=== PATIENT | male | born 1975 | race Caucasian/White ===

== ENCOUNTER 2020-10-19 17:42 | Inpatient (IN) | payer OTHER ==
[~2020-10-19] VITALS: Ht 188 cm; Wt 104.3 kg
--- NOTE | 2020-10-19 18:24 | NUR ---
[facility] from [place] for altered mental status. pt was seen there yesterday for right ear pain and purulent drainage w/ headache x 3 weeks. Pt and family at bedside deny any recent head trauma. Pt reports 3 weeks ago his ear just "popped." found pt this morning altered/confused and she described him as "unresponsive" Head CT scan at transferring facility was concerning for chronic subdural hematoma or hygroma vs empyema. Also some concerns surround right sinus cavities. pt was tranferred here for higher level of care. pt attached to all monitors. dr mary swabbed ear for culture sample. call light attached to bed rail.
[2020-10-19] MEDS ORDERED: SODIUM CHLORIDE FLUSH 10ML SYR IVF ONE (18:30)
[2020-10-19] MEDS ORDERED: POTASSIUM CHLORIDE 40 MEQ in SODIUM CHLORIDE 0.9% 500 ML IV ONE (19:00)
[2020-10-19] MEDS ORDERED: POTASSIUM CHLORIDE 20 MEQ TAB.ER.PRT PO ONE (19:00)
--- NOTE | 2020-10-19 19:29 | NUR ---
TASK RN: LAB AT BEDSIDE FOR DRAW AT THIS TIME.
[2020-10-19] MEDS ORDERED: VANCOMYCIN PER PHARMACY MC ONE (19:30)
[2020-10-19] MEDS ORDERED: MORPHINE SULFATE 4 MG/ML, 1ML ONE ×3 (19:36→23:34)
[2020-10-19] MEDS: MORPHINE SULFATE 4 MG/ML, 1ML IVPush PRN ×2 (19:44→20:47)
--- NOTE | 2020-10-19 19:44 | NUR ---
task rn: pt to mri
--- NOTE | 2020-10-19 19:47 | NUR ---
pt to MRI
[2020-10-19] MEDS ORDERED: AMLO-211 PO (19:57)
[2020-10-19] MEDS ORDERED: DULO20CA45 PO (19:57)
[2020-10-19] MEDS ORDERED: buspirone PO (19:57)
[2020-10-19] MEDS ORDERED: quetiapine PO (19:57)
[2020-10-19] MEDS ORDERED: PIPERACILLIN/TAZO 4.5 GM in DEXTROSE 5% 100 ML IVPB ONE (20:00)
[2020-10-19] MEDS ORDERED: VANCOMYCIN 2,500 MG in SODIUM CHLORIDE 0.9% 500 ML IV ONE (20:30)
[2020-10-19] MEDS ORDERED: DIVA500T17 PO (20:55)
[2020-10-19] MEDS ORDERED: SILD100T PO (20:55)
[2020-10-19] MEDS ORDERED: CYAN-27 PO (20:55)
[2020-10-19] MEDS ORDERED: PREG200C PO (20:55)
--- NOTE | 2020-10-19 20:55 | NUR ---
task rn. pt medicated for pain per [facility], med rec updated per with med list. neuro assessment done. pt with family at bedside.
[2020-10-19] MEDS ORDERED: GADOTERATE 10 MMOL/20ML SYR ONE (21:34)
--- NOTE | 2020-10-19 22:19 | NUR ---
dr corbin with neurosurg at beside with dr lamas also
[2020-10-19] MEDS ORDERED: GUAIFENESIN/DM 200-20MG, 10ML UDC PO PRN (22:30)
[2020-10-19] MEDS ORDERED: ENALAPRILAT 1.25 MG/ML, 2ML IVPush PRN (22:30)
[2020-10-19] MEDS ORDERED: VANCOMYCIN PER PHARMACY MC PRN (22:30)
[2020-10-19] MEDS ORDERED: METHOCARBAMOL 500 MG TABLET PO PRN (22:30)
[2020-10-19] MEDS ORDERED: MELATONIN 5 MG TABLET PO PRN (22:30)
[2020-10-19] MEDS ORDERED: DOCUSATE 100 MG CAPSULE PO PRN (22:30)
[2020-10-19] MEDS ORDERED: ONDANSETRON 2MG/ML, 2ML IVPush PRN (22:30)
[2020-10-19 22:51] LABS: BASOPHILS % (AUTO) 1 % (0-1); EOSINOPHILS % (AUTO) 0 % (1-7); LYMPHOCYTES % (AUTO) 17 % (22-44); MEAN CORPUSCULAR HEMOGLOBIN 27.7 pg (27.5-34.5); MEAN CORPUSCULAR HGB CONC 33.4 g/dL (33.2-36.2); MEAN PLATELET VOLUME 9.6 fL (7.4-10.4); MONOCYTES % (AUTO) 13 % (2-9); NEUTROPHILS % (AUTO) 69 % (42-75); PLATELET COUNT 243 x10^3/uL (130-400); RED BLOOD COUNT 3.84 x10^6/uL (4.38-5.82); RED CELL DISTRIBUTION WIDTH 18.9 % (9.4-14.8)
[2020-10-19] MEDS ORDERED: LEVETIRACETAM 500 MG TABLET ONE (22:53)
[2020-10-19] MEDS ORDERED: NICOTINE 21 MG/24 HR PATCH.TD24 ONE (22:53)
[2020-10-19] MEDS ORDERED: DIVALPROEX 500 MG TAB.ER.24H ONE (22:53)
[2020-10-19 22:59] LABS: ANION GAP 7 mmol/L (5-15); CALCIUM 8.2 mg/dL (8.5-10.1); CHLORIDE 108 mmol/L (98-107); CREATININE 0.74 mg/dL (0.7-1.3)
[2020-10-19] MEDS: NICOTINE 21 MG/24 HR PATCH.TD24 TD SCH (23:03)
[2020-10-19] MEDS: DIVALPROEX 500 MG TAB.ER.24H PO SCH (23:04)
[2020-10-19] MEDS: LEVETIRACETAM 500 MG TABLET PO SCH (23:04)
[2020-10-19 23:11] LABS: INTERNATIONAL NORMALIZED RATIO 1.07 (0.93-1.1); PROTHROMBIN TIME 11.4 Seconds (9.6-11.5)
[2020-10-19] MEDS: morphine SULFATE 10 MG/ML, 1ML IVPush PRN (23:36)
--- NOTE | 2020-10-19 23:47 | NUR ---
pt with complaints of increased pain. medicated for pain per [facility].
--- NOTE | 2020-10-19 23:48 | NUR ---
report to aurelio [facility]inton
[2020-10-20] MEDS ORDERED: PHARMACOKINETIC MONITORING MC PRN (00:30)
[2020-10-20] MEDS: SODIUM CHLORIDE 0.9% 1,000 ML IV SCH ×3 (01:11→22:18)
[2020-10-20] MEDS: BUSPIRONE 10 MG TABLET PO SCH ×4 (01:11→20:16)
[2020-10-20] MEDS: DULOXETINE 20 MG CAPSULE.DR PO SCH ×4 (01:11→20:16)
[2020-10-20] MEDS: PREGABALIN 100 MG CAPSULE PO SCH ×4 (01:12→20:20)
[2020-10-20] MEDS: QUETIAPINE 200 MG TABLET PO SCH ×2 (01:12→20:15)
[2020-10-20] MEDS: CIPROFLOXACIN/HYDROCORTISONE EAR SUSP 0.2-1%, 10ML RIGHT EAR SCH ×3 (01:17→20:12)
[2020-10-20] MEDS ORDERED: PIPERACILLIN/TAZO 4.5 GM in DEXTROSE 5% 100 ML IV SCH (04:00)
[2020-10-20 04:32] LABS: BASOPHILS % (AUTO) 1 % (0-1); EOSINOPHILS % (AUTO) 1 % (1-7); LYMPHOCYTES % (AUTO) 27 % (22-44); MEAN CORPUSCULAR HEMOGLOBIN 27.7 pg (27.5-34.5); MEAN CORPUSCULAR HGB CONC 32.9 g/dL (33.2-36.2); MONOCYTES % (AUTO) 17 % (2-9); NEUTROPHILS % (AUTO) 54 % (42-75); PLATELET COUNT 213 x10^3/uL (130-400); RED BLOOD COUNT 3.76 x10^6/uL (4.38-5.82); RED CELL DISTRIBUTION WIDTH 19.1 % (9.4-14.8)
[2020-10-20 04:44] LABS: ANION GAP 5 mmol/L (5-15); CHLORIDE 108 mmol/L (98-107); CREATININE 0.71 mg/dL (0.7-1.3)
[2020-10-20] MEDS: morphine SULFATE 10 MG/ML, 1ML IVPush PRN ×4 (08:46→20:41)
[2020-10-20] MEDS: CYANOCOBALAMIN 1,000 MCG TABLET PO SCH (09:00)
[2020-10-20] MEDS: OXYcodone IR 5MG TABLET PO PRN ×2 (09:20→14:39)
[2020-10-20] MEDS: LEVETIRACETAM 500 MG TABLET PO SCH ×2 (09:53→20:16)
[2020-10-20] MEDS: AMLODIPINE 10 MG TAB PO SCH (09:54)
[2020-10-20] MEDS: CEFEPIME 2 GM in DEXTROSE 5% 100 ML IV SCH ×2 (09:54→17:45)
[2020-10-20] MEDS: VANCOMYCIN 2,000 MG in SODIUM CHLORIDE 0.9% 500 ML IV SCH ×2 (11:03→22:18)
[2020-10-20] MEDS: DIVALPROEX 500 MG TAB.ER.24H PO SCH (20:16)
[2020-10-20] MEDS: NICOTINE 21 MG/24 HR PATCH.TD24 TD SCH (22:19)
[2020-10-21] MEDS: CEFEPIME 2 GM in DEXTROSE 5% 100 ML IV SCH ×2 (01:36→09:23)
[2020-10-21] MEDS: morphine SULFATE 10 MG/ML, 1ML IVPush PRN ×2 (03:52→15:26)
[2020-10-21 04:11] LABS: BASOPHILS % (AUTO) 1 % (0-1); EOSINOPHILS % (AUTO) 1 % (1-7); LYMPHOCYTES % (AUTO) 27 % (22-44); MEAN CORPUSCULAR HEMOGLOBIN 27.7 pg (27.5-34.5); MEAN PLATELET VOLUME 8.8 fL (7.4-10.4); MONOCYTES % (AUTO) 15 % (2-9); NEUTROPHILS % (AUTO) 57 % (42-75); PLATELET COUNT 212 x10^3/uL (130-400); RED BLOOD COUNT 3.65 x10^6/uL (4.38-5.82); RED CELL DISTRIBUTION WIDTH 18.3 % (9.4-14.8)
[2020-10-21 04:21] LABS: ALBUMIN 2.2 g/dL (3.4-5.0); CALCIUM 8.2 mg/dL (8.5-10.1)
[2020-10-21 04:27] LABS: ALANINE AMINOTRANSFERASE 12 U/L (12-78); ALKALINE PHOSPHATASE 66 U/L (45-117); BILIRUBIN,TOTAL 0.3 mg/dL (0.2-1.0); CREATININE 0.59 mg/dL (0.7-1.3); TOTAL PROTEIN 6.4 g/dL (6.4-8.2)
[2020-10-21 04:34] LABS: ANION GAP 6 mmol/L (5-15); CHLORIDE 106 mmol/L (98-107)
[2020-10-21] MEDS: ACETAMINOPHEN 325 MG TABLET PO PRN ×4 (08:15→22:18)
[2020-10-21] MEDS: OXYcodone IR 5MG TABLET PO PRN ×5 (08:16→22:19)
[2020-10-21] MEDS: PREGABALIN 100 MG CAPSULE PO SCH ×3 (08:20→20:54)
[2020-10-21] MEDS: LEVETIRACETAM 500 MG TABLET PO SCH ×2 (08:20→20:53)
[2020-10-21] MEDS: BUSPIRONE 10 MG TABLET PO SCH ×3 (08:20→20:53)
[2020-10-21] MEDS: DULOXETINE 20 MG CAPSULE.DR PO SCH ×3 (08:20→20:53)
[2020-10-21] MEDS: AMLODIPINE 10 MG TAB PO SCH (08:21)
[2020-10-21] MEDS: CYANOCOBALAMIN 1,000 MCG TABLET PO SCH (08:21)
[2020-10-21] MEDS: CIPROFLOXACIN/HYDROCORTISONE EAR SUSP 0.2-1%, 10ML RIGHT EAR SCH ×2 (08:24→21:42)
[2020-10-21] MEDS ORDERED: CEFEPIME 2 GM in DEXTROSE 5% 50 ML IV SCH (09:26)
[2020-10-21] MEDS: VANCOMYCIN 2,000 MG in SODIUM CHLORIDE 0.9% 500 ML IV SCH ×2 (10:11→22:21)
[2020-10-21] MEDS: CEFEPIME 2 GM in DEXTROSE 5% 50 ML IV SCH (16:46)
[2020-10-21 19:52] VITALS: BP 128/66
[2020-10-21] MEDS: DIVALPROEX 500 MG TAB.ER.24H PO SCH (20:54)
[2020-10-21] MEDS: QUETIAPINE 200 MG TABLET PO SCH (20:55)
[2020-10-21] MEDS: NICOTINE 21 MG/24 HR PATCH.TD24 TD SCH (22:22)
[2020-10-22] MEDS: CEFEPIME 2 GM in DEXTROSE 5% 50 ML IV SCH ×3 (01:28→17:45)
[2020-10-22 03:29] VITALS: BP 113/72
[2020-10-22] MEDS: OXYcodone IR 5MG TABLET PO PRN ×3 (03:39→14:17)
[2020-10-22 06:18] LABS: BASOPHILS % (AUTO) 1 % (0-1); EOSINOPHILS % (AUTO) 2 % (1-7); LYMPHOCYTES % (AUTO) 38 % (22-44); MEAN CORPUSCULAR HEMOGLOBIN 27.7 pg (27.5-34.5); MEAN CORPUSCULAR HGB CONC 32.8 g/dL (33.2-36.2); MONOCYTES % (AUTO) 14 % (2-9); NEUTROPHILS % (AUTO) 45 % (42-75); PLATELET COUNT 260 x10^3/uL (130-400); RED BLOOD COUNT 3.63 x10^6/uL (4.38-5.82); RED CELL DISTRIBUTION WIDTH 18.5 % (9.4-14.8)
[2020-10-22 06:19] LABS: CALCIUM 8.3 mg/dL (8.5-10.1); CHLORIDE 108 mmol/L (98-107)
[2020-10-22 06:23] LABS: ANION GAP 5 mmol/L (5-15); CREATININE 0.62 mg/dL (0.7-1.3)
[2020-10-22 08:55] VITALS: BP 122/85
[2020-10-22] MEDS: CYANOCOBALAMIN 1,000 MCG TABLET PO SCH (09:27)
[2020-10-22] MEDS: AMLODIPINE 10 MG TAB PO SCH (09:28)
[2020-10-22] MEDS: PREGABALIN 100 MG CAPSULE PO SCH ×3 (09:28→21:11)
[2020-10-22] MEDS: LEVETIRACETAM 500 MG TABLET PO SCH ×2 (09:28→21:11)
[2020-10-22] MEDS: CIPROFLOXACIN/HYDROCORTISONE EAR SUSP 0.2-1%, 10ML RIGHT EAR SCH ×2 (09:28→21:05)
[2020-10-22] MEDS: BUSPIRONE 10 MG TABLET PO SCH ×3 (09:28→21:10)
[2020-10-22] MEDS: DULOXETINE 20 MG CAPSULE.DR PO SCH ×3 (09:28→21:00)
[2020-10-22] MEDS: VANCOMYCIN 2,000 MG in SODIUM CHLORIDE 0.9% 500 ML IV SCH ×2 (10:37→21:24)
[2020-10-22] MEDS: morphine SULFATE 10 MG/ML, 1ML IVPush PRN ×2 (10:37→21:23)
[2020-10-22] MEDS: ACETAMINOPHEN 325 MG TABLET PO PRN ×2 (12:34→17:52)
[2020-10-22 14:00] VITALS: BP 121/82
[2020-10-22] MEDS ORDERED: allegra PO (17:16)
[2020-10-22 18:20] VITALS: BP 119/82
[2020-10-22] MEDS ORDERED: QUET200T4 PO (19:17)
[2020-10-22] MEDS: NICOTINE 21 MG/24 HR PATCH.TD24 TD SCH (21:10)
[2020-10-22] MEDS: QUETIAPINE 200 MG TABLET PO SCH (21:11)
[2020-10-22] MEDS: DIVALPROEX 500 MG TAB.ER.24H PO SCH (21:11)
[2020-10-22] MEDS ORDERED: MORPHINE SULFATE 4 MG/ML, 1ML ONE (21:21)
[2020-10-23] MEDS: CEFEPIME 2 GM in DEXTROSE 5% 50 ML IV SCH ×3 (01:14→17:51)
[2020-10-23 01:21] VITALS: BP 98/63
[2020-10-23 05:21] LABS: BASOPHILS % (AUTO) 1 % (0-1); EOSINOPHILS % (AUTO) 2 % (1-7); LYMPHOCYTES % (AUTO) 25 % (22-44); MEAN CORPUSCULAR HEMOGLOBIN 27.7 pg (27.5-34.5); MEAN CORPUSCULAR HGB CONC 32.9 g/dL (33.2-36.2); MEAN PLATELET VOLUME 8.8 fL (7.4-10.4); MONOCYTES % (AUTO) 15 % (2-9); NEUTROPHILS % (AUTO) 57 % (42-75); PLATELET COUNT 286 x10^3/uL (130-400); RED BLOOD COUNT 3.62 x10^6/uL (4.38-5.82); RED CELL DISTRIBUTION WIDTH 18.6 % (9.4-14.8)
[2020-10-23 05:29] LABS: CHLORIDE 107 mmol/L (98-107)
[2020-10-23 05:30] LABS: HCT (SEDRATE) 30.5 % (39.2-51.8)
[2020-10-23 05:40] LABS: ALANINE AMINOTRANSFERASE 20 U/L (12-78); ALBUMIN 2.2 g/dL (3.4-5.0); ALKALINE PHOSPHATASE 67 U/L (45-117); ANION GAP 5 mmol/L (5-15); BILIRUBIN,TOTAL 0.3 mg/dL (0.2-1.0); CALCIUM 8.1 mg/dL (8.5-10.1); CREATININE 0.65 mg/dL (0.7-1.3); TOTAL PROTEIN 6.6 g/dL (6.4-8.2)
[2020-10-23 06:43] VITALS: BP 106/72
[2020-10-23] MEDS: DULOXETINE 20 MG CAPSULE.DR PO SCH ×3 (09:30→21:05)
[2020-10-23] MEDS: LEVETIRACETAM 500 MG TABLET PO SCH ×2 (09:30→21:05)
[2020-10-23] MEDS: PREGABALIN 100 MG CAPSULE PO SCH ×3 (09:30→21:04)
[2020-10-23] MEDS: CYANOCOBALAMIN 1,000 MCG TABLET PO SCH (09:30)
[2020-10-23] MEDS: BUSPIRONE 10 MG TABLET PO SCH ×3 (09:30→21:04)
[2020-10-23] MEDS: AMLODIPINE 10 MG TAB PO SCH (09:30)
[2020-10-23] MEDS: CETIRIZINE 10 MG TABLET PO SCH (09:31)
[2020-10-23] MEDS: CIPROFLOXACIN/HYDROCORTISONE EAR SUSP 0.2-1%, 10ML RIGHT EAR SCH ×2 (09:31→21:04)
[2020-10-23] MEDS: OXYcodone IR 5MG TABLET PO PRN ×3 (09:43→19:45)
[2020-10-23] MEDS: ACETAMINOPHEN 325 MG TABLET PO PRN ×3 (09:43→19:44)
[2020-10-23] MEDS: VANCOMYCIN 2,000 MG in SODIUM CHLORIDE 0.9% 500 ML IV SCH (11:09)
[2020-10-23 12:09] VITALS: BP 115/77
[2020-10-23] MEDS: morphine SULFATE 10 MG/ML, 1ML IVPush PRN ×2 (17:52→21:06)
[2020-10-23 19:51] VITALS: BP 119/81
[2020-10-23] MEDS ORDERED: MORPHINE SULFATE 4 MG/ML, 1ML ONE (20:58)
[2020-10-23] MEDS: QUETIAPINE 200 MG TABLET PO SCH (21:04)
[2020-10-23] MEDS: NICOTINE 21 MG/24 HR PATCH.TD24 TD SCH (21:05)
[2020-10-23] MEDS: DIVALPROEX 500 MG TAB.ER.24H PO SCH (21:05)
[2020-10-24] MEDS: CEFEPIME 2 GM in DEXTROSE 5% 50 ML IV SCH ×3 (01:30→17:43)
[2020-10-24 01:33] VITALS: BP 104/73
[2020-10-24] MEDS: OXYcodone IR 5MG TABLET PO PRN ×4 (01:35→17:34)
[2020-10-24] MEDS: ACETAMINOPHEN 325 MG TABLET PO PRN ×4 (01:35→17:34)
[2020-10-24 05:28] LABS: BASOPHILS % (AUTO) 1 % (0-1); EOSINOPHILS % (AUTO) 3 % (1-7); LYMPHOCYTES % (AUTO) 35 % (22-44); MEAN CORPUSCULAR HEMOGLOBIN 27.8 pg (27.5-34.5); MEAN CORPUSCULAR HGB CONC 32.8 g/dL (33.2-36.2); MEAN PLATELET VOLUME 8.8 fL (7.4-10.4); MONOCYTES % (AUTO) 13 % (2-9); NEUTROPHILS % (AUTO) 48 % (42-75); PLATELET COUNT 306 x10^3/uL (130-400); RED BLOOD COUNT 3.72 x10^6/uL (4.38-5.82); RED CELL DISTRIBUTION WIDTH 18.5 % (9.4-14.8)
[2020-10-24 05:31] LABS: CHLORIDE 109 mmol/L (98-107)
[2020-10-24 05:37] LABS: ANION GAP 5 mmol/L (5-15); CREATININE 0.86 mg/dL (0.7-1.3)
[2020-10-24 06:34] VITALS: BP 103/69
[2020-10-24] MEDS: LEVETIRACETAM 500 MG TABLET PO SCH ×2 (09:20→21:09)
[2020-10-24] MEDS: DULOXETINE 20 MG CAPSULE.DR PO SCH ×3 (09:20→21:09)
[2020-10-24] MEDS: PREGABALIN 100 MG CAPSULE PO SCH ×3 (09:20→21:09)
[2020-10-24] MEDS: AMLODIPINE 10 MG TAB PO SCH (09:20)
[2020-10-24] MEDS: CYANOCOBALAMIN 1,000 MCG TABLET PO SCH (09:20)
[2020-10-24] MEDS: CETIRIZINE 10 MG TABLET PO SCH (09:20)
[2020-10-24] MEDS: POTASSIUM CHLORIDE 20 MEQ TAB.ER.PRT PO SCH ×3 (09:20→20:58)
[2020-10-24] MEDS: CIPROFLOXACIN/HYDROCORTISONE EAR SUSP 0.2-1%, 10ML RIGHT EAR SCH ×2 (09:21→21:08)
[2020-10-24] MEDS: BUSPIRONE 10 MG TABLET PO SCH ×3 (09:21→21:09)
[2020-10-24] MEDS: QUETIAPINE 200 MG TABLET PO SCH ×2 (12:27→21:09)
[2020-10-24 14:43] VITALS: BP 155/87
[2020-10-24] MEDS ORDERED: GADOTERATE 10 MMOL/20ML SYR ONE (18:51)
[2020-10-24 19:58] VITALS: BP 130/90
[2020-10-24] MEDS ORDERED: MORPHINE SULFATE 4 MG/ML, 1ML ONE (20:48)
[2020-10-24] MEDS: morphine SULFATE 10 MG/ML, 1ML IVPush PRN (20:57)
[2020-10-24] MEDS: DIVALPROEX 500 MG TAB.ER.24H PO SCH (21:09)
[2020-10-24] MEDS: NICOTINE 21 MG/24 HR PATCH.TD24 TD SCH (23:49)
[2020-10-25] MEDS: CEFEPIME 2 GM in DEXTROSE 5% 50 ML IV SCH ×2 (01:33→09:00)
[2020-10-25 02:13] VITALS: BP 128/83
[2020-10-25] MEDS ORDERED: MORPHINE SULFATE 4 MG/ML, 1ML ONE ×3 (03:53→22:35)
[2020-10-25] MEDS: morphine SULFATE 10 MG/ML, 1ML IVPush PRN ×4 (04:06→22:38)
[2020-10-25 04:29] LABS: BASOPHILS % (AUTO) 1 % (0-1); EOSINOPHILS % (AUTO) 3 % (1-7); LYMPHOCYTES % (AUTO) 34 % (22-44); MEAN CORPUSCULAR HEMOGLOBIN 27.8 pg (27.5-34.5); MEAN CORPUSCULAR HGB CONC 33.2 g/dL (33.2-36.2); MEAN PLATELET VOLUME 8.7 fL (7.4-10.4); MONOCYTES % (AUTO) 13 % (2-9); NEUTROPHILS % (AUTO) 49 % (42-75); PLATELET COUNT 379 x10^3/uL (130-400); RED BLOOD COUNT 3.87 x10^6/uL (4.38-5.82); RED CELL DISTRIBUTION WIDTH 18.9 % (9.4-14.8)
[2020-10-25 04:35] LABS: CALCIUM 8.6 mg/dL (8.5-10.1); CREATININE 0.92 mg/dL (0.7-1.3)
[2020-10-25 04:46] LABS: ANION GAP 3 mmol/L (5-15); CHLORIDE 108 mmol/L (98-107)
[2020-10-25] MEDS ORDERED: HEPARIN wt. based STROKE protocol MC PRN (08:00)
[2020-10-25] MEDS ORDERED: DO NOT GIVE XX PRN (08:00)
[2020-10-25 08:09] VITALS: BP 111/69
[2020-10-25] MEDS: CETIRIZINE 10 MG TABLET PO SCH (08:26)
[2020-10-25] MEDS: CYANOCOBALAMIN 1,000 MCG TABLET PO SCH (08:26)
[2020-10-25] MEDS: PREGABALIN 100 MG CAPSULE PO SCH ×3 (08:26→21:12)
[2020-10-25] MEDS: DULOXETINE 20 MG CAPSULE.DR PO SCH ×3 (08:26→21:12)
[2020-10-25] MEDS: AMLODIPINE 10 MG TAB PO SCH (08:26)
[2020-10-25] MEDS: CIPROFLOXACIN/HYDROCORTISONE EAR SUSP 0.2-1%, 10ML RIGHT EAR SCH ×2 (08:26→21:13)
[2020-10-25] MEDS: BUSPIRONE 10 MG TABLET PO SCH ×3 (08:26→21:12)
[2020-10-25] MEDS: LEVETIRACETAM 500 MG TABLET PO SCH ×2 (08:27→21:12)
[2020-10-25] MEDS: OXYcodone IR 5MG TABLET PO PRN ×2 (09:06→15:24)
[2020-10-25] MEDS: HEPARIN 25,000 UNITS/250ML PMX 250 ML IV PRN (10:03)
[2020-10-25] MEDS: ACETAMINOPHEN 325 MG TABLET PO PRN ×2 (10:16→15:23)
[2020-10-25] MEDS: QUETIAPINE 200 MG TABLET PO SCH ×2 (11:41→21:13)
[2020-10-25 14:41] VITALS: BP 123/78
[2020-10-25] MEDS: CEFTRIAXONE 2 GM in DEXTROSE 5% 50 ML IVPB SCH (17:20)
[2020-10-25 20:13] VITALS: BP 138/82
[2020-10-25] MEDS: NICOTINE 21 MG/24 HR PATCH.TD24 TD SCH (21:13)
[2020-10-25] MEDS: DIVALPROEX 500 MG TAB.ER.24H PO SCH (21:13)
[2020-10-26 02:32] VITALS: BP 111/75
[2020-10-26] MEDS: HEPARIN 25,000 UNITS/250ML PMX 250 ML IV PRN ×2 (02:37→15:00)
[2020-10-26] MEDS: ACETAMINOPHEN 325 MG TABLET PO PRN ×3 (04:23→13:06)
[2020-10-26] MEDS: OXYcodone IR 5MG TABLET PO PRN ×3 (04:23→13:06)
[2020-10-26] MEDS: CEFTRIAXONE 2 GM in DEXTROSE 5% 50 ML IVPB SCH ×2 (04:55→16:35)
[2020-10-26] MEDS ORDERED: MORPHINE SULFATE 4 MG/ML, 1ML ONE (06:24)
[2020-10-26] MEDS: morphine SULFATE 10 MG/ML, 1ML IVPush PRN ×4 (06:26→22:03)
[2020-10-26 07:05] VITALS: BP 113/76
[2020-10-26] MEDS: CIPROFLOXACIN/HYDROCORTISONE EAR SUSP 0.2-1%, 10ML RIGHT EAR SCH ×2 (08:19→22:13)
[2020-10-26] MEDS: BUSPIRONE 10 MG TABLET PO SCH ×3 (08:20→22:00)
[2020-10-26] MEDS: AMLODIPINE 10 MG TAB PO SCH (08:20)
[2020-10-26] MEDS: CYANOCOBALAMIN 1,000 MCG TABLET PO SCH (08:20)
[2020-10-26] MEDS: CETIRIZINE 10 MG TABLET PO SCH (08:20)
[2020-10-26] MEDS: DULOXETINE 20 MG CAPSULE.DR PO SCH ×3 (08:20→21:59)
[2020-10-26] MEDS: LEVETIRACETAM 500 MG TABLET PO SCH ×2 (08:20→21:59)
[2020-10-26] MEDS: PREGABALIN 100 MG CAPSULE PO SCH ×3 (08:20→22:00)
[2020-10-26] MEDS: QUETIAPINE 200 MG TABLET PO SCH ×2 (11:28→21:59)
[2020-10-26 12:42] VITALS: BP 119/79
[2020-10-26 19:57] VITALS: BP 125/82
[2020-10-26] MEDS: DIVALPROEX 500 MG TAB.ER.24H PO SCH (21:59)
[2020-10-26] MEDS: NICOTINE 21 MG/24 HR PATCH.TD24 TD SCH (22:13)
[2020-10-27 02:29] VITALS: BP 132/81
[2020-10-27 04:33] LABS: BASOPHILS % (AUTO) 0 % (0-1); EOSINOPHILS % (AUTO) 3 % (1-7); LYMPHOCYTES % (AUTO) 42 % (22-44); MEAN CORPUSCULAR HEMOGLOBIN 27.1 pg (27.5-34.5); MEAN CORPUSCULAR HGB CONC 32.6 g/dL (33.2-36.2); MEAN PLATELET VOLUME 8.7 fL (7.4-10.4); MONOCYTES % (AUTO) 14 % (2-9); NEUTROPHILS % (AUTO) 41 % (42-75); PLATELET COUNT 330 x10^3/uL (130-400); RED BLOOD COUNT 3.83 x10^6/uL (4.38-5.82); RED CELL DISTRIBUTION WIDTH 18.5 % (9.4-14.8)
[2020-10-27 04:41] LABS: ANION GAP 6 mmol/L (5-15); CALCIUM 8.3 mg/dL (8.5-10.1); CHLORIDE 107 mmol/L (98-107); CREATININE 0.97 mg/dL (0.7-1.3)
[2020-10-27] MEDS: HEPARIN 25,000 UNITS/250ML PMX 250 ML IV PRN ×3 (05:30→18:15)
[2020-10-27] MEDS: CEFTRIAXONE 2 GM in DEXTROSE 5% 50 ML IVPB SCH ×2 (05:30→16:53)
[2020-10-27] MEDS: morphine SULFATE 10 MG/ML, 1ML IVPush PRN ×4 (05:40→19:48)
[2020-10-27 07:29] VITALS: BP 118/82
[2020-10-27] MEDS: CIPROFLOXACIN/HYDROCORTISONE EAR SUSP 0.2-1%, 10ML RIGHT EAR SCH ×2 (08:10→22:44)
[2020-10-27] MEDS: OXYcodone IR 5MG TABLET PO PRN ×2 (08:11→13:41)
[2020-10-27] MEDS: CYANOCOBALAMIN 1,000 MCG TABLET PO SCH (08:11)
[2020-10-27] MEDS: BUSPIRONE 10 MG TABLET PO SCH ×3 (08:11→22:42)
[2020-10-27] MEDS: AMLODIPINE 10 MG TAB PO SCH (08:11)
[2020-10-27] MEDS: PREGABALIN 100 MG CAPSULE PO SCH ×3 (08:11→22:43)
[2020-10-27] MEDS: CETIRIZINE 10 MG TABLET PO SCH (08:11)
[2020-10-27] MEDS: DULOXETINE 20 MG CAPSULE.DR PO SCH ×3 (08:11→22:49)
[2020-10-27] MEDS: ACETAMINOPHEN 325 MG TABLET PO PRN ×2 (08:11→13:41)
[2020-10-27] MEDS: LEVETIRACETAM 500 MG TABLET PO SCH ×2 (08:11→22:42)
[2020-10-27] MEDS: QUETIAPINE 200 MG TABLET PO SCH ×2 (11:16→22:42)
[2020-10-27] MEDS: NICOTINE 7 MG/24 HR PATCH.TD24 TD SCH (11:16)
[2020-10-27 14:20] VITALS: BP 119/80
[2020-10-27 18:29] VITALS: BP 131/82
[2020-10-27] MEDS ORDERED: CETI10TA18 PO (18:30)
[2020-10-27] MEDS ORDERED: MELA5TAB14 PO (18:30)
[2020-10-27] MEDS ORDERED: NICO-485 TD (18:30)
[2020-10-27] MEDS ORDERED: QUET200T PO ×2 (18:30)
[2020-10-27] MEDS ORDERED: BUSP10TA PO (18:30)
[2020-10-27] MEDS ORDERED: CEFT2FRO2 IV (18:30)
[2020-10-27] MEDS ORDERED: TRAM50TA2 PO (18:30)
[2020-10-27] MEDS ORDERED: OXYC5TAB98 PO (18:30)
[2020-10-27] MEDS ORDERED: ONDA4VIA60 IVPush (18:30)
[2020-10-27] MEDS ORDERED: NICO-587 TD (18:30)
[2020-10-27] MEDS ORDERED: CIPR10DR RIGHT EAR (18:30)
[2020-10-27] MEDS ORDERED: DIVA500T4 PO (18:30)
[2020-10-27] MEDS ORDERED: ACET325T26 PO (18:30)
[2020-10-27] MEDS ORDERED: DOCU-131 PO (18:30)
[2020-10-27] MEDS ORDERED: CYAN-27 PO (18:30)
[2020-10-27] MEDS ORDERED: AMLO-211 PO (18:30)
[2020-10-27] MEDS ORDERED: [UNRECOGNIZED DRUG - OTHER] MC (18:30)
[2020-10-27] MEDS ORDERED: MORP10VI10 IVPush (18:30)
[2020-10-27] MEDS ORDERED: METH-639 PO (18:30)
[2020-10-27] MEDS ORDERED: DULO20CA18 PO (18:30)
[2020-10-27] MEDS ORDERED: LEVE500T53 PO (18:30)
[2020-10-27] MEDS ORDERED: PREG100C PO (18:30)
[2020-10-27] MEDS: DIVALPROEX 500 MG TAB.ER.24H PO SCH (22:42)
[2020-10-27] MEDS: NICOTINE 21 MG/24 HR PATCH.TD24 TD SCH (22:44)
[2020-10-28 00:38] VITALS: BP 108/72
[2020-10-28] MEDS: morphine SULFATE 10 MG/ML, 1ML IVPush PRN ×3 (00:42→19:34)
[2020-10-28] MEDS: CEFTRIAXONE 2 GM in DEXTROSE 5% 50 ML IVPB SCH ×2 (05:18→16:23)
[2020-10-28 07:05] VITALS: BP 111/77
[2020-10-28] MEDS: HEPARIN 25,000 UNITS/250ML PMX 250 ML IV PRN (08:00)
[2020-10-28] MEDS: BUSPIRONE 10 MG TABLET PO SCH ×3 (09:34→22:52)
[2020-10-28] MEDS: DULOXETINE 20 MG CAPSULE.DR PO SCH ×3 (09:34→22:51)
[2020-10-28] MEDS: PREGABALIN 100 MG CAPSULE PO SCH ×3 (09:34→22:51)
[2020-10-28] MEDS: CETIRIZINE 10 MG TABLET PO SCH (09:34)
[2020-10-28] MEDS: LEVETIRACETAM 500 MG TABLET PO SCH ×2 (09:34→22:52)
[2020-10-28] MEDS: CYANOCOBALAMIN 1,000 MCG TABLET PO SCH (09:34)
[2020-10-28] MEDS: AMLODIPINE 10 MG TAB PO SCH (09:34)
[2020-10-28] MEDS: CIPROFLOXACIN/HYDROCORTISONE EAR SUSP 0.2-1%, 10ML RIGHT EAR SCH ×2 (10:04→22:49)
[2020-10-28] MEDS: NICOTINE 21 MG/24 HR PATCH.TD24 TD SCH ×2 (11:52→12:16)
[2020-10-28] MEDS: ACETAMINOPHEN 325 MG TABLET PO PRN ×3 (11:53→22:56)
[2020-10-28] MEDS: QUETIAPINE 200 MG TABLET PO SCH ×2 (11:53→22:51)
[2020-10-28] MEDS: OXYcodone IR 5MG TABLET PO PRN ×3 (11:54→22:55)
[2020-10-28] MEDS: NICOTINE 7 MG/24 HR PATCH.TD24 TD SCH (11:54)
[2020-10-28] MEDS: DOCUSATE 100 MG CAPSULE PO SCH (12:15)
[2020-10-28 12:31] VITALS: BP 121/83
[2020-10-28 20:22] VITALS: BP 129/85
[2020-10-28] MEDS: DIVALPROEX 500 MG TAB.ER.24H PO SCH (22:51)
[2020-10-29] MEDS: HEPARIN 25,000 UNITS/250ML PMX 250 ML IV PRN ×2 (01:10→14:10)
[2020-10-29 01:14] VITALS: BP 105/68
[2020-10-29] MEDS: CEFTRIAXONE 2 GM in DEXTROSE 5% 50 ML IVPB SCH ×2 (05:20→17:01)
[2020-10-29 05:24] LABS: MEAN CORPUSCULAR HEMOGLOBIN 27.6 pg (27.5-34.5); MEAN CORPUSCULAR HGB CONC 32.8 g/dL (33.2-36.2); MEAN PLATELET VOLUME 8.7 fL (7.4-10.4); PLATELET COUNT 354 x10^3/uL (130-400); RED BLOOD COUNT 3.93 x10^6/uL (4.38-5.82); RED CELL DISTRIBUTION WIDTH 18.3 % (9.4-14.8)
[2020-10-29 05:32] LABS: ANION GAP 3 mmol/L (5-15); CALCIUM 8.8 mg/dL (8.5-10.1); CHLORIDE 107 mmol/L (98-107)
[2020-10-29 05:33] LABS: CREATININE 0.93 mg/dL (0.7-1.3)
[2020-10-29 05:52] LABS: BASOS#(MANUAL) 0.06 x10^3/uL (0-0.1); BASOS% (MANUAL) 1 % (0-1); EOS#(MANUAL) 0.13 x10^3/uL (0.0-0.4); EOS% (MANUAL) 2 % (1-7); LYMPHS% (MANUAL) 61 % (22-44); MONOS#(MANUAL) 0.64 x10^3/uL (0.3-2.7); MONOS% (MANUAL) 10 % (2-9); SEG#(MANUAL) 1.66 x10^3/uL (1.8-6.8); SEGS% (MANUAL) 26 % (42-75)
[2020-10-29 05:53] LABS: ANISOCYTOSIS 1+; HYPOCHROMIA 1+; MICROCYTOSIS 1+
[2020-10-29 05:54] LABS: <PLATELET ESTIMATE> ADEQUATE; <PLT MORPHOLOGY> NORMAL PLT MORPH
[2020-10-29 06:27] VITALS: BP 117/81
[2020-10-29] MEDS: CETIRIZINE 10 MG TABLET PO SCH (09:28)
[2020-10-29] MEDS: DULOXETINE 20 MG CAPSULE.DR PO SCH ×3 (09:29→20:35)
[2020-10-29] MEDS: PREGABALIN 100 MG CAPSULE PO SCH ×3 (09:29→20:36)
[2020-10-29] MEDS: BUSPIRONE 10 MG TABLET PO SCH ×3 (09:29→20:36)
[2020-10-29] MEDS: LEVETIRACETAM 500 MG TABLET PO SCH ×2 (09:29→20:37)
[2020-10-29] MEDS: CYANOCOBALAMIN 1,000 MCG TABLET PO SCH (09:29)
[2020-10-29] MEDS: DOCUSATE 100 MG CAPSULE PO SCH (09:29)
[2020-10-29] MEDS: AMLODIPINE 10 MG TAB PO SCH (09:29)
[2020-10-29] MEDS: CIPROFLOXACIN/HYDROCORTISONE EAR SUSP 0.2-1%, 10ML RIGHT EAR SCH ×2 (11:14→20:38)
[2020-10-29] MEDS: QUETIAPINE 200 MG TABLET PO SCH ×2 (11:14→20:37)
[2020-10-29] MEDS: NICOTINE 7 MG/24 HR PATCH.TD24 TD SCH (11:15)
[2020-10-29] MEDS: NICOTINE 21 MG/24 HR PATCH.TD24 TD SCH (11:15)
[2020-10-29] MEDS: OXYcodone IR 5MG TABLET PO PRN ×2 (11:26→17:01)
[2020-10-29] MEDS: ACETAMINOPHEN 325 MG TABLET PO PRN ×2 (11:26→17:01)
[2020-10-29 13:30] VITALS: BP 112/78
[2020-10-29] MEDS: MAGNESIUM HYDROXIDE 8%, 30ML UDC PO SCH (14:08)
[2020-10-29] MEDS: hydrOXyzine 10MG TABLET HOMEMEDPO PRN (15:20)
[2020-10-29] MEDS ORDERED: hydrOXyzine 10MG TABLET PO PRN (15:30)
[2020-10-29] MEDS: morphine SULFATE 10 MG/ML, 1ML IVPush PRN ×2 (15:34→20:31)
[2020-10-29 18:47] VITALS: BP 118/79
[2020-10-29] MEDS: DIVALPROEX 500 MG TAB.ER.24H PO SCH (20:36)
[2020-10-30 02:20] VITALS: BP 103/64
[2020-10-30] MEDS: HEPARIN 25,000 UNITS/250ML PMX 250 ML IV PRN ×2 (05:15→17:25)
[2020-10-30] MEDS: CEFTRIAXONE 2 GM in DEXTROSE 5% 50 ML IVPB SCH ×2 (05:16→16:57)
[2020-10-30] MEDS: OXYcodone IR 5MG TABLET PO PRN ×4 (06:23→20:33)
[2020-10-30 06:55] VITALS: BP 118/79
[2020-10-30] MEDS: MAGNESIUM HYDROXIDE 8%, 30ML UDC PO SCH (09:00)
[2020-10-30] MEDS: morphine SULFATE 10 MG/ML, 1ML IVPush PRN ×3 (09:20→23:04)
[2020-10-30] MEDS: CETIRIZINE 10 MG TABLET PO SCH (09:21)
[2020-10-30] MEDS: PREGABALIN 100 MG CAPSULE PO SCH ×3 (09:21→20:34)
[2020-10-30] MEDS: DOCUSATE 100 MG CAPSULE PO SCH (09:21)
[2020-10-30] MEDS: BUSPIRONE 10 MG TABLET PO SCH ×3 (09:21→20:33)
[2020-10-30] MEDS: DULOXETINE 20 MG CAPSULE.DR PO SCH ×3 (09:21→20:32)
[2020-10-30] MEDS: LEVETIRACETAM 500 MG TABLET PO SCH ×2 (09:21→20:34)
[2020-10-30] MEDS: CYANOCOBALAMIN 1,000 MCG TABLET PO SCH (09:22)
[2020-10-30] MEDS: AMLODIPINE 10 MG TAB PO SCH (09:22)
[2020-10-30] MEDS: CIPROFLOXACIN/HYDROCORTISONE EAR SUSP 0.2-1%, 10ML RIGHT EAR SCH ×2 (09:33→20:34)
[2020-10-30] MEDS: NICOTINE 21 MG/24 HR PATCH.TD24 TD SCH (11:51)
[2020-10-30] MEDS: NICOTINE 7 MG/24 HR PATCH.TD24 TD SCH (11:51)
[2020-10-30] MEDS: ACETAMINOPHEN 325 MG TABLET PO PRN ×2 (11:51→15:55)
[2020-10-30] MEDS: QUETIAPINE 200 MG TABLET PO SCH ×2 (11:51→20:33)
[2020-10-30 12:30] VITALS: BP 106/72
[2020-10-30] MEDS: hydrOXyzine 10MG TABLET HOMEMEDPO PRN (17:28)
[2020-10-30 20:16] VITALS: BP 117/76
[2020-10-30] MEDS: METRONIDAZOLE PMX 500MG/100ML 100 ML IV SCH (20:27)
[2020-10-30] MEDS: DIVALPROEX 500 MG TAB.ER.24H PO SCH (20:32)
[2020-10-31 01:43] VITALS: BP 102/60
[2020-10-31] MEDS: METRONIDAZOLE PMX 500MG/100ML 100 ML IV SCH ×4 (03:04→20:38)
[2020-10-31] MEDS: CEFTRIAXONE 2 GM in DEXTROSE 5% 50 ML IVPB SCH ×2 (05:15→18:36)
[2020-10-31 07:07] VITALS: BP 113/75
[2020-10-31 07:08] VITALS: BP 105/67
[2020-10-31] MEDS: HEPARIN 25,000 UNITS/250ML PMX 250 ML IV PRN ×2 (08:16→22:58)
[2020-10-31] MEDS: ACETAMINOPHEN 325 MG TABLET PO PRN ×3 (08:21→18:36)
[2020-10-31] MEDS: CETIRIZINE 10 MG TABLET PO SCH (08:21)
[2020-10-31] MEDS: AMLODIPINE 10 MG TAB PO SCH (08:22)
[2020-10-31] MEDS: CYANOCOBALAMIN 1,000 MCG TABLET PO SCH (08:22)
[2020-10-31] MEDS: LEVETIRACETAM 500 MG TABLET PO SCH ×2 (08:22→20:39)
[2020-10-31] MEDS: DOCUSATE 100 MG CAPSULE PO SCH (08:22)
[2020-10-31] MEDS: DULOXETINE 20 MG CAPSULE.DR PO SCH ×3 (08:24→20:39)
[2020-10-31] MEDS: OXYcodone IR 5MG TABLET PO PRN ×4 (08:24→23:00)
[2020-10-31] MEDS: BUSPIRONE 10 MG TABLET PO SCH ×3 (08:24→20:39)
[2020-10-31] MEDS: PREGABALIN 100 MG CAPSULE PO SCH ×3 (08:24→20:39)
[2020-10-31] MEDS: MAGNESIUM HYDROXIDE 8%, 30ML UDC PO SCH (08:25)
[2020-10-31] MEDS: CIPROFLOXACIN/HYDROCORTISONE EAR SUSP 0.2-1%, 10ML RIGHT EAR SCH ×2 (10:15→20:40)
[2020-10-31 12:07] VITALS: BP 111/74
[2020-10-31] MEDS: QUETIAPINE 200 MG TABLET PO SCH ×2 (12:29→20:39)
[2020-10-31] MEDS: NICOTINE 21 MG/24 HR PATCH.TD24 TD SCH (12:30)
[2020-10-31] MEDS: NICOTINE 7 MG/24 HR PATCH.TD24 TD SCH (12:30)
[2020-10-31] MEDS: morphine SULFATE 10 MG/ML, 1ML IVPush PRN (15:38)
[2020-10-31 19:22] VITALS: BP 119/82
[2020-10-31] MEDS: DIVALPROEX 500 MG TAB.ER.24H PO SCH (20:39)
[2020-11-01 02:01] VITALS: BP 113/75
[2020-11-01] MEDS: METRONIDAZOLE PMX 500MG/100ML 100 ML IV SCH (02:18)
[2020-11-01] MEDS: OXYcodone IR 5MG TABLET PO PRN ×2 (03:18→07:29)
[2020-11-01] MEDS: ACETAMINOPHEN 325 MG TABLET PO PRN ×2 (03:18→07:29)
[2020-11-01] MEDS: CEFTRIAXONE 2 GM in DEXTROSE 5% 50 ML IVPB SCH (04:33)
[2020-11-01 04:51] LABS: BASOPHILS % (AUTO) 2 % (0-1); EOSINOPHILS % (AUTO) 2 % (1-7); LYMPHOCYTES % (AUTO) 48 % (22-44); MEAN CORPUSCULAR HEMOGLOBIN 26.9 pg (27.5-34.5); MEAN CORPUSCULAR HGB CONC 32.4 g/dL (33.2-36.2); MONOCYTES % (AUTO) 13 % (2-9); NEUTROPHILS % (AUTO) 36 % (42-75); PLATELET COUNT 312 x10^3/uL (130-400); RED BLOOD COUNT 4.02 x10^6/uL (4.38-5.82); RED CELL DISTRIBUTION WIDTH 18.3 % (9.4-14.8)
[2020-11-01 05:10] LABS: ANION GAP 5 mmol/L (5-15); CALCIUM 8.5 mg/dL (8.5-10.1); CHLORIDE 107 mmol/L (98-107); CREATININE 1.04 mg/dL (0.7-1.3)
[2020-11-01 07:08] VITALS: BP 118/79
== END 2020-11-01 08:15 | disposition short-term general hospital (02) | DRG 94 ==
LOC: ED 21:34 → EDIP 22:05 → CCU 10-20 00:02 → 4NE 10-21 17:47
PROVIDERS: ADMIT Internal Medicine; ATTEND Hospitalist
PROC: 02HV33Z Insertion of Infusion Device into Superior Vena Cava, Percutaneous Approach (ICD-10-PCS; principal; 2020-10-24)
PROC: B5181ZA Fluoroscopy of Superior Vena Cava using Low Osmolar Contrast, Guidance (ICD-10-PCS; 2020-10-24)
PROC: B548ZZA Ultrasonography of Superior Vena Cava, Guidance (ICD-10-PCS; 2020-10-24)
DX: G00.2 Streptococcal meningitis (principal); G06.2 Extradural and subdural abscess, unspecified; G92 Toxic encephalopathy; G08 Intracranial and intraspinal phlebitis and thrombophlebitis; H70.091 Acute mastoiditis with other complications, right ear; Z91.011 Allergy to milk products; D63.8 Anemia in other chronic diseases classified elsewhere; E87.6 Hypokalemia; E88.09 Other disorders of plasma-protein metabolism, not elsewhere classified; F12.90 Cannabis use, unspecified, uncomplicated; F17.200 Nicotine dependence, unspecified, uncomplicated; F32.9 Major depressive disorder, single episode, unspecified; F43.10 Post-traumatic stress disorder, unspecified; H66.91 Otitis media, unspecified, right ear; I10 Essential (primary) hypertension; K59.00 Constipation, unspecified; Z20.822 Contact with and (suspected) exposure to COVID-19; H72.90 Unspecified perforation of tympanic membrane, unspecified ear; Z87.828 Personal history of other (healed) physical injury and trauma; Z98.84 Bariatric surgery status; B95.4 Other streptococcus as the cause of diseases classified elsewhere
CPT/HCPCS: 36415; 36573; 70480; 70553; 71045; 80048; 80053; 80164; 80202; 83605; 83735; 84100; 84443; 85025; 85520; 85610; 85651; 85730; 86140; 87040; 87070; 87075; 87081; 87205; 87635; 96365; 96375; 96376; G0378; J0696; J2405; J2543; J3370; U0005; A9575; C1751; J2270; J7030; J7040; U0003